=== PATIENT | female | born 1995 | race African-American/Black ===

== ENCOUNTER 2021-04-18 09:16 | Emergency (ER) | payer BC, SELFPAY ==
[2021-04-18] MEDS: OLANZapine 10 MG INJ VIAL 5 MG IM (09:37)
[2021-04-18] MEDS: WATER, STERILE FOR INJECTION 10 ML VIAL XX (09:37)
[2021-04-18 09:47] VITALS: BP 110/74; PULSE 110; RESP 28; TEMP 36.8; O2SAT 100
[2021-04-18] MEDS: LORazepam INJ (*CRX) 2 MG/ML VIAL IM ×2 (09:53→23:13)
[2021-04-18 11:54] LABS: Basophils Percent Auto 0.4 % (0.2-1.2); Hematocrit 34.7 % (37.0-47.0); Hemoglobin 11.4 g/dL (12.0-15.0); Immature Granulocyte Absolute 0.02 K/mm3 (0.00-0.031); Immature Granulocyte Percent A 0.2 % (0-0.5); Lymphocytes Absolute Auto 0.93 K/mm3 (0.9-3.2); Lymphocytes Percent Auto 11.3 % (18.3-44.2); Mean Corpuscular HGB Conc 32.9 g/dl (32-36); Mean Corpuscular Hemoglobin 28.9 pg (26-34); Mean Corpuscular Volume 88.1 fl (80-100); Mean Platelet Volume 9.9 fl (7.4-10.4); Monocytes Absolute Auto 0.6 K/mm3 (0.1-0.6); Monocytes Percent Auto 7.2 % (2.6-8.5); Neutrophils Absolute Auto 6.6 K/mm3 (1.3-6.7); Neutrophils Percent Auto 80.9 % (45.5-73.1); Platelet Count Result 283 k/mm3 (150-375); Red Blood Count 3.94 M/mm3 (4.2-5.4); Red Cell Distribution Width 11.8 % (11.5-14.5); White Blood Count 8.2 K/mm3 (4.5-10.0)
[2021-04-18 11:58] LABS: Add Urine Microscopic? YES; Appearance Urine Clear (Clear); Bacteria Urine Trace /hpf; Bilirubin Urine Negative (Negative); Blood Urine 1+ (Negative); Color Urine Yellow (Yellow); Glucose Urine UA Negative (Negative); Ketones Urine Trace mg/dL (Negative); Leukocyte Esterase Ur 2+ LEU/UL (Negative); Mucus Urine Rare /lpf; Nitrate Urine Negative (Negative); Protein Urine Negative (Negative); Specific Grav Ur 1.009 (1.001-1.035); Squamous Epithelial Cell Urine Few /hpf (Few); Urobilinogen Urine Negative mg/dL (<2.0)
[2021-04-18 12:03] LABS: Ethanol < 10 mg/dL (<10)
[2021-04-18 12:04] VITALS: BP 90/50; PULSE 88; RESP 20; O2SAT 100
[2021-04-18 12:06] LABS: Alanine Aminotransferase 12 U/L (4-35); Albumin Level 4.4 g/dL (3.5-5.1); Alkaline Phosphatase 59 U/L (38-126); Anion Gap 11 mmol/L (8-16); Aspartate Amino Transferase 32 U/L (14-36); Bilirubin,Total 0.4 mg/dL (0.2-1.3); Blood Urea Nitrogen 7 mg/dL (7-17); Calcium 9.4 mg/dL (8.4-10.2); Carbon Dioxide 23 mmol/L (22-30); Chloride 106 mmol/L (98-107); Estimated CRCL calculation 105 ml/min; Estimated Glomerular Filt Rate > 60; Glucose 118 mg/dL (65-110); Potassium 3.8 mmol/L (3.4-5.0); Sodium 140 mmol/L (137-145)
[2021-04-18 12:11] LABS: Barbiturate Screen Urine Negative (Negative)
[2021-04-18 12:24] LABS: Benzodiazepines Screen Urine Negative (Negative)
[2021-04-18 12:39] LABS: Amphetamine Screen Urine Negative (Negative); Cannabinoid Screen Urine Negative (Negative); Cocaine Screen Urine Negative (Negative); Methadone Screen Urine Negative (Negative); Opiate Screen Urine Negative (Negative); Phencyclidine Screen Urine Negative (Negative)
[2021-04-18 13:20] VITALS: BP 90/60; PULSE 80; RESP 16; O2SAT 100
[2021-04-18 15:27] VITALS: BP 112/72; PULSE 88; RESP 20; O2SAT 100
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
[2021-04-18 17:03] LABS: EDCOVIDSCREEN Negative (Negative)
--- NOTE | 2021-04-18 17:21 | PC.NURSE ---
DINNER TRAY ORDERED
[2021-04-18 18:25] VITALS: BP 107/67; PULSE 72; RESP 20; O2SAT 100
--- NOTE | 2021-04-18 18:48 | PC.NURSE ---
CALL RECEIVED FROM [employer]. REPORT GIVEN. [facility] REQUEST TSH AND COVID RESULTS TO BE FAXED TO [phone]. STATES PLAN TO ADMIT PT TO [facility] PENDING RESULTS
[2021-04-18 20:54] VITALS: BP 108/71; PULSE 72; RESP 18; O2SAT 100
--- NOTE | 2021-04-18 21:19 | PC.NURSE ---
report to guero @ [employer] , going to room #[id number]
== END 2021-04-18 23:22 ==
PROVIDERS: Family Medicine; Emergency Provider Emergency Medicine; PCP Family Medicine
DX: F29 Unspecified psychosis not due to a substance or known physiological condition (principal); Z20.822 Contact with and (suspected) exposure to COVID-19
CPT/HCPCS: 36415; 80053; 80307; 81001; 81025; 84443; 85025; 87086; 87088; 87426; 96372; 99285; C9803; J2060

== ENCOUNTER 2022-01-04 08:57 | Emergency (ER) | payer BC, SELFPAY ==
--- NOTE | ~2022-01-04 | XR_ITS ---
EXAMINATION: XR chest 2V 01/04/2022 10:13 INDICATION: Chest pain PROCEDURE: 2 view chest COMPARISON: No prior studies for comparison. FINDINGS: The lungs are clear. The cardiomediastinal silhouette is within normal limits. There are no pleural effusions. There is no pneumothorax suspected. IMPRESSION: 1: NO ACUTE CARDIOPULMONARY DISEASE. Reviewed, dictated and finalized at location B.
--- NOTE | 2022-01-04 08:59 | ECG_ITS ---
Measurements Intervals [place] Rate: 94 P: 72 ID: 158 QRS: 94 QRSD: 88 T: 31 QT: 320 QTc: 401 Interpretive Statements SINUS RHYTHM RIGHTWARD AXIS Electronically Signed On 01-04-2022 11:16:42 CDT by Robert Lai M.D.
[2022-01-04 09:00] VITALS: BP 113/78; PULSE 115; RESP 16; TEMP 36.7; O2SAT 100
[2022-01-04 09:12] VITALS: PULSE 114
[2022-01-04 09:15] VITALS: BP 111/73; PULSE 105; RESP 16; O2SAT 100
--- NOTE | 2022-01-04 09:17 | ED.CHESTPAIN ---
HPI - Chest Pain General Chief Complaint: Chest Pain Stated Complaint: chest pain Time Seen by Provider: 01/04/22 08:59 History of Present Illness HPI narrative: 26-year-old female with a history of psychosis presents to the emergency room for evaluation of concerns of lingering urinary tract infection. Patient states that she is concerned that she has a septic and has other organ damage from a urinary tract infection that she was diagnosed with a year ago. Patient states that her bladder is bloated and she has vaginal discharge. Patient denies fever or low back pain. Patient also states that she developed constant chest pain, with palpitations and shortness of breath that began this morning when she woke up. Patient states the symptoms are similar to her prior panic attacks. Patient's mother is at the bedside, states that [facility] and diagnosed with bacterial vaginosis. Mother states that patient was taking a cream to manage this infection. Related Data Home Medications Medication Instructions Recorded Confirmed hydroxyzine HCl 10 mg tablet 10 mg PO BID PRN Anxiety 01/04/22 01/04/22 olanzapine 10 mg tablet 10 mg PO HS 01/04/22 Allergies Allergy/AdvReac Type Severity Reaction Status Date / Time No Known Allergies Allergy Verified 01/04/22 09:08 Review of Systems Review of Systems: CONSTITUTIONAL: Denies fever, chills, or sweats. EYES: Denies visual changes, redness, or discharge. ENT: Denies rhinorrhea, congestion, sore throat, or otalgia. CARDIOVASCULAR: Reports chest pain and palpitations RESPIRATORY: Denies cough or dyspnea. GASTROINTESTINAL: Reports suprapubic pain, denies nausea, vomiting, or diarrhea. GENITOURINARY: Reports dysuria or hematuria. SKIN: Denies rash or itching. MUSCULOSKELETAL: Denies back pain, joint pain, or myalgia. NEUROLOGIC: Denies headache, numbness, dizziness, or weakness. PSYCHIATRIC: Denies anxiety or depression. [facility] Social History Social History Smoking status: Never smoker Alcohol intake: never Substance use type: does not use Exam Narrative: GENERAL: Well-appearing, well-nourished, and in no acute distress. HEAD: Normocephalic, atraumatic. EYES: PERRLA and EOMI. CHEST: Clear to auscultation. No respiratory distress. No wheezes rales or rhonchi HEART: Tachycardic with a normal rhythm. No murmur heard. Normal peripheral pulses. ABDOMEN: Soft, nontender, nondistended, normal active bowel sounds. No CVA tenderness EXTREMITIES: Normal range of motion. No edema. SKIN: Warm, dry, no rash. NEURO: No focal deficits. Alert and oriented x3. PSYCH: Anxious and paranoid Course Vital Signs Vital signs: Vital Signs Temperature 36.7 C 01/04/22 09:00 Pulse Rate 115 H 01/04/22 09:00 Respiratory Rate 16 01/04/22 09:00 Blood Pressure 113/78 01/04/22 09:00 Pulse Oximetry 100 01/04/22 09:00 Oxygen Delivery Room Air 01/04/22 09:00 Temperature 36.7 C 01/04/22 09:00 Pulse Rate 114 H 01/04/22 09:12 Respiratory Rate 16 01/04/22 09:00 Blood Pressure 113/78 01/04/22 09:00 Pulse Oximetry 100 01/04/22 09:00 Oxygen Delivery Room Air 01/04/22 09:00 MDM - Chest Pain MDM Narrative Medical decision making narrative: 26-year-old female history of bipolar presenting to the emergency room for complaints of ongoing vaginal discharge, and chest pain. Exam was without evidence of volume overload. EKG was normal sinus with no signs of active ischemia. Single troponin was within normal limits so doubt STEMI or NSTEMI. Presentation is not consistent with acute PE. Chest x-ray shows no acute cardiopulmonary disease, so unlikely patient has a pneumothorax or pneumonia. Patient's heart score is 0. Patient states that she was recently contacted by your DEODORIZER OPERATOR, and her culture came back as negative for bacterial vaginosis. Will recommend patient follow-up with DEODORIZER OPERATOR
--- NOTE | 2022-01-04 09:28 | PC.NURSE ---
Refuses to have chest xray. Wants to have her other test results back before she gets it.
[2022-01-04 09:35] LABS: Basophils Percent Auto 0.5 % (0.2-1.2); Eosinophils Percent Auto 0.5 % (0-4.4); Hematocrit 38.1 % (37.0-47.0); Hemoglobin 12.5 g/dL (12.0-15.0); Immature Granulocyte Absolute 0.02 K/mm3 (0.00-0.031); Immature Granulocyte Percent A 0.3 % (0-0.5); Lymphocytes Absolute Auto 1.92 K/mm3 (0.9-3.2); Lymphocytes Percent Auto 25.3 % (18.3-44.2); Mean Corpuscular HGB Conc 32.8 g/dl (32-36); Mean Corpuscular Hemoglobin 28.3 pg (26-34); Mean Corpuscular Volume 86.4 fl (80-100); Mean Platelet Volume 9.1 fl (7.4-10.4); Monocytes Absolute Auto 0.5 K/mm3 (0.1-0.6); Monocytes Percent Auto 6.5 % (2.6-8.5); Neutrophils Absolute Auto 5.1 K/mm3 (1.3-6.7); Neutrophils Percent Auto 66.9 % (45.5-73.1); Platelet Count Result 372 k/mm3 (150-375); Red Blood Count 4.41 M/mm3 (4.2-5.4); Red Cell Distribution Width 12.2 % (11.5-14.5); White Blood Count 7.6 K/mm3 (4.5-10.0)
[2022-01-04 09:50] LABS: Alanine Aminotransferase 10 U/L (6-35); Albumin Level 4.7 g/dL (3.5-5.1); Alkaline Phosphatase 69 U/L (38-126); Anion Gap 9 mmol/L (8-16); Aspartate Amino Transferase 24 U/L (14-36); Bilirubin,Total 0.4 mg/dL (0.2-1.3); Blood Urea Nitrogen 9 mg/dL (7-17); Calcium 9.1 mg/dL (8.4-10.2); Carbon Dioxide 25 mmol/L (22-30); Chloride 103 mmol/L (98-107); Estimated CRCL calculation 80 ml/min; Estimated Glomerular Filt Rate > 60; Glucose 108 mg/dL (65-110); Potassium 3.5 mmol/L (3.4-5.0); Sodium 137 mmol/L (137-145)
[2022-01-04 09:59] LABS: Appearance Urine Clear (Clear); Bilirubin Urine 1+ (Negative); Blood Urine 1+ (Negative); Color Urine Yellow (Yellow); Glucose Urine UA Negative (Negative); Ketones Urine Negative (Negative); Leukocyte Esterase Ur Negative LEU/UL (Negative); Nitrate Urine Negative (Negative); Protein Urine Negative (Negative); Specific Grav Ur >= 1.030 (1.001-1.035); Urobilinogen Urine 0.2 mg/dL (<2.0); pH Urine 5.5 (5.0-9.0)
[2022-01-04 10:02] LABS: Troponin I < 0.012 ng/mL (0.000-0.034)
[2022-01-04 10:04] LABS: Mucus Urine Moderate /lpf; RBC Urine 0-2 /hpf (0-2); Squamous Epithelial Cell Urine Rare /hpf (Few); WBC Urine 0-3 /hpf
[2022-01-04 10:06] LABS: Add Urine Microscopic? YES
[2022-01-04 10:30] VITALS: BP 108/69; PULSE 87; RESP 16; O2SAT 100
[2022-01-04 11:11] VITALS: BP 121/68; PULSE 78; RESP 16; TEMP 36.8; O2SAT 100
== END 2022-01-04 11:13 | disposition home or self-care (01) ==
PROVIDERS: Emergency Provider Nurse Practitioner Family
DX: R07.9 Chest pain, unspecified (principal); N89.8 Other specified noninflammatory disorders of vagina
CPT/HCPCS: 36415; 71046; 80053; 81001; 81025; 84484; 85025; 93005; 99284

== ENCOUNTER 2023-01-06 11:19 | Emergency (ER) | payer BC, MEDICAID, SELFPAY ==
[2023-01-06] MEDS: LORazepam INJ (*CRX) 2 MG/ML VIAL (11:30)
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
--- NOTE | 2023-01-06 11:53 | PC.NURSE ---
mother at bedside. mother educated on restraints and her bags are locked in the cabinet at this time
[2023-01-06 12:32] VITALS: BP 110/67; PULSE 58; RESP 19; TEMP 37.7; O2SAT 97
--- NOTE | 2023-01-06 13:21 | PC.NURSE ---
Patient calm at this time. mother at bedside. restraints removed from patient and drinks provided.
[2023-01-06 14:11] LABS: Basophils Percent Auto 0.2 % (0.2-1.2); Hemoglobin 12.7 g/dL (12.0-15.0); Immature Granulocyte Absolute 0.06 K/mm3 (0.00-0.031); Immature Granulocyte Percent A 0.4 % (0-0.5); Lymphocytes Absolute Auto 0.89 K/mm3 (0.9-3.2); Lymphocytes Percent Auto 6.4 % (18.3-44.2); Mean Corpuscular HGB Conc 33.4 g/dl (32-36); Mean Corpuscular Hemoglobin 28.5 pg (26-34); Mean Corpuscular Volume 85.4 fl (80-100); Mean Platelet Volume 9.2 fl (7.4-10.4); Monocytes Absolute Auto 0.8 K/mm3 (0.1-0.6); Monocytes Percent Auto 5.8 % (2.6-8.5); Neutrophils Absolute Auto 12.1 K/mm3 (1.3-6.7); Neutrophils Percent Auto 87.2 % (45.5-73.1); Platelet Count Result 330 k/mm3 (150-375); Red Blood Count 4.45 M/mm3 (4.2-5.4); Red Cell Distribution Width 11.9 % (11.5-14.5); White Blood Count 13.9 K/mm3 (4.5-10.0)
[2023-01-06 14:24] LABS: Ethanol < 10 mg/dL (<10)
[2023-01-06 14:26] LABS: Alanine Aminotransferase 17 U/L (6-35); Albumin Level 4.8 g/dL (3.5-5.1); Alkaline Phosphatase 72 U/L (38-126); Anion Gap 12 mmol/L (8-16); Aspartate Amino Transferase 31 U/L (14-36); Bilirubin,Total 0.8 mg/dL (0.2-1.3); Blood Urea Nitrogen 11 mg/dL (7-17); Calcium 9.5 mg/dL (8.4-10.2); Carbon Dioxide 22 mmol/L (22-30); Chloride 102 mmol/L (98-107); Estimated Glomerular Filt Rate > 60; Glucose 103 mg/dL (65-110); Potassium 4.3 mmol/L (3.4-5.0); Sodium 136 mmol/L (137-145)
[2023-01-06 15:14] LABS: Influenza A QL RT-PCR Negative (Negative); Influenza B QL RT-PCR Negative (Negative); SARS-CoV-2 RNA PCR Negative (Negative)
--- NOTE | 2023-01-06 17:34 | PC.NURSE ---
Patient ambulated to the restroom and is back in bed resting comfortably.
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
[2023-01-06 18:18] LABS: Appearance Urine Turbid (Clear); Bacteria Urine 4+ /hpf; Bilirubin Urine Negative (Negative); Blood Urine 2+ (Negative); Color Urine Yellow (Yellow); Glucose Urine UA Negative (Negative); Ketones Urine 2+ mg/dL (Negative); Leukocyte Esterase Ur 3+ LEU/UL (Negative); Need Manual Microscopic Reviewed; Nitrate Urine Negative (Negative); Non Pathogenic Casts >20; Protein Urine 1+ mg/dL (Negative); Specific Grav Ur 1.022 (1.001-1.035); Squamous Epithelial Cell Urine Many /hpf (Few); WBC Urine >100 /hpf; pH Urine 5.5 (5.0-9.0)
[2023-01-06 18:19] LABS: Add Urine Microscopic? YES
[2023-01-06 18:59] LABS: Amphetamine Screen Urine Negative (Negative); Barbiturate Screen Urine Negative (Negative); Benzodiazepines Screen Urine Negative (Negative); Cannabinoid Screen Urine Negative (Negative); Cocaine Screen Urine Negative (Negative); Methadone Screen Urine Negative (Negative); Opiate Screen Urine Negative (Negative); Phencyclidine Screen Urine Negative (Negative)
--- NOTE | 2023-01-06 19:07 | PC.NURSE ---
spoke with crisis to send out a social sciences lecturer
--- NOTE | 2023-01-06 21:17 | PC.NURSE ---
Patient resting peacefully at this time. breathing even and non labored. equal chest rise and fall. will have patient take her antibiotic when she wakes up.
[2023-01-06] MEDS: CEFUROXIME AXETIL 250 MG TABLET 500 MG PO (23:14)
--- NOTE | 2023-01-07 | ECG_ITS ---
Measurements Intervals [place] Rate: 86 P: 67 MD: 158 QRS: 89 QRSD: 87 T: 42 QT: 355 QTc: 427 Interpretive Statements SINUS RHYTHM POSSIBLE LEFT ATRIAL ENLARGEMENT [-0.1mV P-WAVE IN V1/V2] MODERATE T-WAVE ABNORMALITY, CONSIDER ANTERIOR ISCHEMIA [-0.1+ mV T-WAVE IN V3/V4] RIGHT AXIS DEVIATION COMPARED TO ECG 01/04/2022 09:03:55 THE T-WAVE INVERSION IN V3 AND T-WAVE CHANGES IN V4 ARE MORE PRONOUNCED Electronically Signed On 01-07-2023 9:01:07 CDT by Emilia Will M.D.
--- NOTE | 2023-01-07 00:32 | PC.NURSE ---
Violent restraint order was stopped on patient at 1321 01/06/2023. It was not stopped in [facility] until 01/07/2023 at 0033.
[2023-01-07 03:35] VITALS: BP 104/69; PULSE 94; TEMP 36.2; O2SAT 100
[2023-01-07 03:38] VITALS: BP 104/69; PULSE 94; RESP 16; TEMP 36.2; O2SAT 100
[2023-01-07 08:36] VITALS: BP 112/81; PULSE 92; RESP 18; TEMP 36.8; O2SAT 100
[2023-01-07] MEDS: CEFUROXIME AXETIL 250 MG TABLET 500 MG PO (09:12)
[2023-01-07 16:59] VITALS: BP 110/76; PULSE 89; RESP 18; O2SAT 99
== END 2023-01-07 17:00 ==
PROVIDERS: Emergency Provider Emergency Medicine
DX: F23 Brief psychotic disorder (principal); N39.0 Urinary tract infection, site not specified; Z20.822 Contact with and (suspected) exposure to COVID-19; F31.9 Bipolar disorder, unspecified
CPT/HCPCS: 36415; 80053; 80307; 81001; 84443; 85025; 87086; 87088; 87636; 93005; 96374; 99285; A9270; J2060

== ENCOUNTER 2023-01-16 20:03 | Emergency (ER) | payer BC, MEDICAID, SELFPAY ==
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
[2023-01-16] MEDS: OLANZapine 10 MG INJ VIAL IM (20:41)
[2023-01-16 20:43] VITALS: TEMP 36.8
[2023-01-16 21:10] VITALS: BP 88/63; PULSE 142; RESP 22; O2SAT 98
[2023-01-16] MEDS: LORazepam INJ (*CRX) 2 MG/ML VIAL IM (21:10)
--- NOTE | 2023-01-16 21:20 | PC.NURSE ---
Pt in room, all objects have been removed. Security and sitter are at bedside. Pt denies any SI or HI but has been uncooperative with care.
--- NOTE | 2023-01-16 21:59 | PC.NURSE ---
Spoke with pts mother. Pt is not wanting any visitors at this time. Mother wishes to be updated periodically. Moms number [phone] Dads number [phone]
[2023-01-16 22:19] LABS: Add Urine Microscopic? YES; Appearance Urine Cloudy (Clear); Bacteria Urine None Seen /hpf; Bilirubin Urine 1+ (Negative); Blood Urine Negative (Negative); Calcium Oxalate Crystals Urine Present /hpf; Color Urine Dark Yellow (Yellow); Glucose Urine UA Negative (Negative); Ketones Urine Trace mg/dL (Negative); Leukocyte Esterase Ur Trace LEU/UL (Negative); Nitrate Urine Negative (Negative); Protein Urine 1+ mg/dL (Negative); Specific Grav Ur 1.028 (1.001-1.035); Squamous Epithelial Cell Urine Few /hpf (Few); WBC Urine 0-5 /hpf
[2023-01-16 22:25] LABS: Basophils Absolute Auto 0.1 K/mm3 (0.0-0.1); Basophils Percent Auto 0.7 % (0.2-1.2); Eosinophils Percent Auto 0.1 % (0-4.4); Hematocrit 37.3 % (37.0-47.0); Immature Granulocyte Absolute 0.01 K/mm3 (0.00-0.031); Immature Granulocyte Percent A 0.1 % (0-0.5); Lymphocytes Absolute Auto 1.07 K/mm3 (0.9-3.2); Lymphocytes Percent Auto 11.9 % (18.3-44.2); Mean Corpuscular HGB Conc 32.2 g/dl (32-36); Mean Corpuscular Hemoglobin 28.2 pg (26-34); Mean Corpuscular Volume 87.8 fl (80-100); Mean Platelet Volume 9.1 fl (7.4-10.4); Monocytes Absolute Auto 0.6 K/mm3 (0.1-0.6); Monocytes Percent Auto 6.1 % (2.6-8.5); Neutrophils Absolute Auto 7.3 K/mm3 (1.3-6.7); Neutrophils Percent Auto 81.1 % (45.5-73.1); Platelet Count Result 352 k/mm3 (150-375); Red Blood Count 4.25 M/mm3 (4.2-5.4)
[2023-01-16 22:25] LABS: Amphetamine Screen Urine Negative (Negative); Barbiturate Screen Urine Negative (Negative); Benzodiazepines Screen Urine Negative (Negative); Cannabinoid Screen Urine Negative (Negative); Cocaine Screen Urine Negative (Negative); Methadone Screen Urine Negative (Negative); Opiate Screen Urine Negative (Negative); Phencyclidine Screen Urine Negative (Negative)
[2023-01-16 22:37] LABS: Alanine Aminotransferase 17 U/L (6-35); Albumin Level 4.7 g/dL (3.5-5.1); Alkaline Phosphatase 65 U/L (38-126); Anion Gap 8 mmol/L (8-16); Aspartate Amino Transferase 32 U/L (14-36); Bilirubin,Total 0.5 mg/dL (0.2-1.3); Blood Urea Nitrogen 5 mg/dL (7-17); Calcium 9.6 mg/dL (8.4-10.2); Carbon Dioxide 28 mmol/L (22-30); Chloride 106 mmol/L (98-107); Estimated Glomerular Filt Rate > 60; Glucose 103 mg/dL (65-110); Potassium 3.8 mmol/L (3.4-5.0); Sodium 142 mmol/L (137-145)
[2023-01-16 22:52] LABS: Acetaminophen < 10 ug/mL (10-30); Ethanol < 10 mg/dL (<10); Salicylate < 1.0 mg/dL (2-20)
[2023-01-17 00:07] LABS: Pregnancy On Board Control Positive; Urine Pregnancy Test Negative
[2023-01-17 00:17] LABS: Influenza A QL RT-PCR Negative (Negative); Influenza B QL RT-PCR Negative (Negative); RSV RNA, RT-PCR Negative (Negative); SARS-CoV-2 RNA PCR Negative (Negative)
[2023-01-17 05:03] VITALS: BP 109/55; PULSE 76; RESP 14; O2SAT 100
--- NOTE | 2023-01-17 05:49 | PC.NURSE ---
Ness from [facility] accepted pt, needing records faxed including COVID results and notes, new page one of involuntary paperwork (needing to say [address] [place] [address] FAX [phone] PH [phone] Will give DOC name after records faxed and received This RN assumed care of pt at this time, pt is resting. Sitter at bedside.
--- NOTE | 2023-01-17 05:58 | PC.NURSE ---
Per Vasquez, from [facility] called back, states they are unable to accept the pt after all due to maxed out , no room for pt. EDP Dr Garcia made aware.
--- NOTE | 2023-01-17 06:24 | PC.NURSE ---
Alexsandra, pts mother calling for update on pt. Pt continues to rest. Lights dimmed. Sitter remains at bedside. Alexsandra contact number for further updates: [phone] Fathers number, Raul is [phone]
--- NOTE | 2023-01-17 07:32 | PC.NURSE ---
Called dietary and ordered breakfast tray for pt at this time.
--- NOTE | 2023-01-17 09:59 | PC.NURSE ---
Crisis called for update on status of placement for pt. None have accepted at this time. Ophelia states will continue to seek placement for pt and will start by calling [facility] back. Pt is alert and aware of POC. Calm and cooperative w/ lights dimmed. Given pillow. Sitter remains at bedside.
--- NOTE | 2023-01-17 10:43 | PC.NURSE ---
Per Ophelia alvarado/ Vincent, this RN faxed records at this time to the following facilities/fax numbers: [facility], F#[phone] [facility], F#[phone] [facility], F#[phone]
[2023-01-17 10:50] VITALS: BP 122/83; PULSE 102; RESP 18; O2SAT 99
--- NOTE | 2023-01-17 11:09 | PC.NURSE ---
Pt on telephone in hallway with [place] at this time. Sitter remains at bedside.
--- NOTE | 2023-01-17 11:21 | PC.NURSE ---
Called dietary and ordered lunch tray for pt at this time.
--- NOTE | 2023-01-17 12:02 | PC.NURSE ---
[facility] called to notify they have accepted the pt for inpatient psych tx. EDP made aware, discharge rn made aware. Requesting the INVOL. paperwork and certificate signed by EDP Dr Yoon be sent prior to giving accepting physician. Faxed per Laureen, unit sec, at this time as requested.
== END 2023-01-17 14:00 ==
PROVIDERS: Emergency Provider Preventive Medicine Aerospace Medicine
DX: F22 Delusional disorders (principal); F31.9 Bipolar disorder, unspecified; Z20.822 Contact with and (suspected) exposure to COVID-19
CPT/HCPCS: 36415; 80053; 80307; 81001; 81025; 84443; 85025; 87637; 96372; 99285; J2060